=== PATIENT | male | born 1950 | race Caucasian/White ===

== ENCOUNTER 2021-10-30 16:15 | Inpatient (IN) | payer MEDICARE ==
[2021-10-31 09:34] VITALS: BMI 26.4
[2021-11-01] MEDS ORDERED: EPINEPHrine 1 MG/ML AMP ONE (06:22)
[2021-11-01] MEDS ORDERED: Heparin 5,000 UNITS/ML VIAL ONE (06:22)
[2021-11-01] MEDS ORDERED: Protamine Sulfate 50 MG/5 ML VIAL ONE ×2 (06:22→08:24)
[2021-11-01] MEDS ORDERED: Bupivacaine PF 0.5% 30 ML VIAL ONE (06:22)
[2021-11-01] MEDS ORDERED: Fentanyl 250 MCG/5 ML VIAL ONE ×2 (06:52→09:28)
[2021-11-01] MEDS ORDERED: Lidocaine 1% MPF 2 ML VIAL ONE (07:00)
[2021-11-01] MEDS ORDERED: Midazolam HCl 2 mg/2 ml Vial ONE (07:06)
[2021-11-01] MEDS ORDERED: Ondansetron ODT 4 MG TAB ONE (07:07)
[2021-11-01] MEDS ORDERED: ceFAZolin 2 GM/Dextrose 50 ML IVPB ONE (07:20)
[2021-11-01] MEDS ORDERED: Glycopyrrolate 0.2 MG/ML 5 ML SYRINGE ONE (07:43)
[2021-11-01] MEDS ORDERED: Rocuronium Bromide 10 MG/ML (10ML VIAL) ONE (07:43)
[2021-11-01] MEDS ORDERED: Dexamethasone 20 MG/5 ML VIAL ONE (07:43)
[2021-11-01] MEDS ORDERED: Lidocaine 1% PF 5 ML VIAL ONE (07:43)
[2021-11-01] MEDS ORDERED: Ondansetron PF 4 MG/2 ML Vial ONE (07:43)
[2021-11-01] MEDS ORDERED: PROPOFOL 200 MG/20 ML VIAL ONE (07:43)
[2021-11-01] MEDS ORDERED: Heparin 10,000 UNITS/ 10 ML VIAL ONE (08:08)
[2021-11-01] MEDS ORDERED: niCARdipine 25 MG in Sodium Chloride 0.9% 250 ML 250 ML IVPB PRN (09:20)
[2021-11-01] MEDS ORDERED: Fentanyl 100 MCG/2 ML VIAL SLOW IVP PRN (09:20)
[2021-11-01] MEDS ORDERED: Promethazine HCl 25 MG/ML VIAL IM PRN (09:20)
[2021-11-01] MEDS ORDERED: HYDROcodone/Acetaminophen 5/325 mg Tablet PO PRN (09:20)
[2021-11-01] MEDS ORDERED: Ondansetron PF 4 MG/2 ML Vial IVP PRN (09:20)
[2021-11-01] MEDS ORDERED: Norepinephrine 8 MG/0.9% NS 250 ML IVPB PRN (09:20)
[2021-11-01] MEDS ORDERED: Loratadine 10 MG TAB PO PRN (09:53)
[2021-11-01] MEDS: Fentanyl 100 MCG/2 ML VIAL SLOW IVP PRN ×2 (10:36→12:25)
[2021-11-01] MEDS: Sodium Chloride 0.9% 1,000 ML IV SCH (10:37)
[2021-11-01] MEDS: HYDROcodone/Acetaminophen 5/325 mg Tablet PO PRN ×2 (11:21→16:20)
[2021-11-01] MEDS: ceFAZolin 2 GM/Dextrose 50 ML 2 GM in Premix Bag 1 BAG IVPB SCH ×2 (15:01→23:04)
[2021-11-01] MEDS ORDERED: diphenhydrAMINE 50 MG CAP PO PRN (18:47)
[2021-11-01] MEDS: Acetaminophen 325 MG TAB PO PRN (20:46)
[2021-11-01] MEDS ORDERED: Rosuvastatin 20 MG TAB PO SCH (21:00)
[2021-11-02] MEDS: Acetaminophen 325 MG TAB PO PRN ×2 (03:14→08:57)
[2021-11-02] MEDS: Sodium Chloride 0.9% 1,000 ML IV SCH (06:15)
[2021-11-02] MEDS: ceFAZolin 2 GM/Dextrose 50 ML 2 GM in Premix Bag 1 BAG IVPB SCH (06:28)
[2021-11-02 07:28] VITALS: TEMP 98.1
[2021-11-02] MEDS ORDERED: Aspirin Chewable 81 MG TAB PO SCH (09:00)
== END 2021-11-02 09:55 | disposition home or self-care (01) | DRG 39 ==
LOC: SURG A 11-01 06:04 → CCU 11-01 09:41
PROVIDERS: ADMIT Thoracic Surgery (Cardiothoracic Vascular Surgery); ATTEND Thoracic Surgery (Cardiothoracic Vascular Surgery)
PROC: 03CH0ZZ Extirpation of Matter from Right Common Carotid Artery, Open Approach (ICD-10-PCS; principal; 2021-11-01)
PROC: 03UH0KZ Supplement Right Common Carotid Artery with Nonautologous Tissue Substitute, Open Approach (ICD-10-PCS; 2021-11-01)
DX: I65.21 Occlusion and stenosis of right carotid artery (principal); Z20.822 Contact with and (suspected) exposure to COVID-19; E78.5 Hyperlipidemia, unspecified; I25.10 Atherosclerotic heart disease of native coronary artery without angina pectoris; J30.2 Other seasonal allergic rhinitis; F32.A Depression, unspecified; I25.2 Old myocardial infarction; Z95.5 Presence of coronary angioplasty implant and graft; Z79.82 Long term (current) use of aspirin; Z79.899 Other long term (current) drug therapy
CPT/HCPCS: 80048; 85027; J0171; J0690; J1100; J1642; J1644; J2250; J2405; J2550; J2704; J2720; J3010; J7050; Q0162; S0020; U0003; U0005